=== PATIENT | male | born 1990 | race African-American/Black ===

== ENCOUNTER 2017-08-16 08:21 | Emergency (ER) | payer OTHER ==
[~2017-08-16] VITALS: Ht 188 cm; Wt 86.7 kg
[2017-08-16 08:35] VITALS: BP 147/76
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
[2017-08-16] MEDS ORDERED: KETOROLAC 60 MG/2 ML VIAL IM ONE (09:10)
--- NOTE | 2017-08-16 09:35 | NUR ---
Patient discharged with v/s stable. Written and verbal after care instructions given and explained. Patient alert, oriented and verbalized understanding of instructions. Ambulatory with steady gait. All questions addressed prior to discharge. ID band removed. Patient advised to follow up with PMD. Rx of NORCO AND AMOXICILLIN given. Patient educated on indication of medication including possible reaction and side effects. Opportunity to ask questions provided and answered.
[2017-08-16 09:36] VITALS: BP 119/72
== END 2017-08-16 09:35 | disposition home or self-care (01) ==
LOC: MED 08:21
DX: K04.7 Periapical abscess without sinus (principal); R03.0 Elevated blood-pressure reading, without diagnosis of hypertension
CPT/HCPCS: 96372; 99283; J1885

== ENCOUNTER 2017-09-02 22:29 | Emergency (ER) | payer OTHER ==
[~2017-09-02] VITALS: Ht 188 cm; Wt 84.4 kg
[2017-09-02 22:35] VITALS: BP 136/60
--- NOTE | 2017-09-02 22:38 | NUR ---
to lobby., a/w bed, vss stable, ermd noted
--- NOTE | 2017-09-03 02:09 | NUR ---
AMBULATED TO ER BED 2
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
[2017-09-03] MEDS ORDERED: DIAZEPAM 5 MG TAB PO ONE (04:40)
[2017-09-03] MEDS ORDERED: KETOROLAC 60 MG/2 ML VIAL IM ONE (04:40)
[2017-09-03 05:20] VITALS: BP 138/72
--- NOTE | 2017-09-03 05:20 | NUR ---
Patient discharged with v/s stable. Written and verbal after care instructions given and explained. Patient alert, oriented and verbalized understanding of instructions. Ambulatory with steady gait. All questions addressed prior to discharge. ID band removed. Patient advised to follow up with PMD. Rx of MOTRIN AND ROBAXIN given. Patient educated on indication of medication including possible reaction and side effects. Opportunity to ask questions provided and answered.
== END 2017-09-03 05:20 | disposition home or self-care (01) ==
LOC: MED 22:29
DX: S30.0XXA Contusion of lower back and pelvis, initial encounter (principal); J45.909 Unspecified asthma, uncomplicated; Y09 Assault by unspecified means; Y93.89 Activity, other specified; Y92.89 Other specified places as the place of occurrence of the external cause; Y99.8 Other external cause status
CPT/HCPCS: 72110; 96372; 99284; J1885

== ENCOUNTER 2018-12-03 13:28 | Emergency (ER) | payer OTHER ==
[~2018-12-03] VITALS: Ht 188 cm; Wt 95.3 kg
[2018-12-03 13:44] VITALS: BP 124/79
--- NOTE | 2018-12-03 16:03 | NUR ---
PT TO ER BED 2
--- NOTE | 2018-12-03 16:15 | NUR ---
COUGH, N/V/D/FEVER & ABD PAIN 4/10 X3 DAYS, SKIN IS WARM/DRY; AAOX4 WITH EVEN AND STEADY GAIT; LUNGS CLEAR BL; HR EVEN AND REGULAR; VSS; PATIENT POSITIONED FOR COMFORT; HOB ELEVATED; BEDRAILS UP X1; BED DOWN. ER MD MADE AWARE OF PT STATUS.
--- NOTE | 2018-12-03 16:17 | NUR ---
Dr. Owen evaluating patient at bedside.
--- NOTE | 2018-12-03 17:45 | NUR ---
PT RESTING IN BED, NO NEW NEEDS AT THIS TIME
--- NOTE | 2018-12-03 19:40 | NUR ---
Patient discharged with v/s stable. Written and verbal after care instructions given and explained. Patient alert, oriented and verbalized understanding of instructions. Ambulatory with steady gait. All questions addressed prior to discharge. ID band removed. Patient advised to follow up with PMD. Rx of TAMIFLU given. Patient educated on indication of medication including possible reaction and side effects. Opportunity to ask questions provided and answered.
[2018-12-03 19:44] VITALS: BP 127/81
== END 2018-12-03 19:40 | disposition home or self-care (01) ==
LOC: MED 13:28
DX: J10.1 Influenza due to other identified influenza virus with other respiratory manifestations (principal); J45.909 Unspecified asthma, uncomplicated
CPT/HCPCS: 71046; 87804; 99284